=== PATIENT | male | born 1990 | race Two or more races ===

== ENCOUNTER 2016-11-07 16:35 | Emergency (ER) | payer MEDICAID ==
[2016-11-07 16:58] LABS: microscopic required? NO
[2016-11-07 17:17] LABS: urine erythrocyte NEGATIVE (NEGATIVE)
[2016-11-07 18:16] VITALS: BP 130/64
== END 2016-11-07 18:16 | disposition home or self-care (01) ==
LOC: ED 16:35
PROVIDERS: Emergency Medicine
DX: R30.0 Dysuria (principal); R35.0 Frequency of micturition
CPT/HCPCS: J0696